=== PATIENT | male | born 1960 | race Caucasian/White ===

== ENCOUNTER → 2024-04-05 | Day surgery (SDC) | payer OTHER ==
[~2024-04-05] MED LIST: ACETAMINOPHEN 1000 MG/100 ML IV ONE; DEXAMETHASONE SOD PHOS INJ 4 MG/ML SDV ONE; EPINEPHRINE 1 MG/ML 30ML VIAL ONE; EPINEPHRINE HCL 1:1000 1ML 1 MG/ML AMP ONE; KETAMINE 50MG/5ML SYR ONE; LIDOCAINE HCL 2% LOCAL INJ 5 ML SDV VIAL INJ ONE; MIDAZOLAM HCL 2 MG/2 ML VIAL ONE; ONDANSETRON HCL INJ 2MG/ML 2ML 2 MG/ML VIAL ONE; PROPOFOL IV EMULSION 10 MG/ML 20 ML VIAL ONE; ROCURONIUM BROMIDE 10 MG/ML 5ML VIAL IV ONE; ROPIVACAINE 0.5% 5 MG/ML 30 ML SDV ONE; SEVOFLURANE INHAL SOLN 250 ML PEN BTL ONE; SUCCINYLCHOLINE CHLORIDE 20 MG/ML 10ML VIAL ONE; SUGAMMADEX SODIUM 200 MG/2 ML VIAL IV ONE; ZESTRIL10 MG PO
[2024-04-05] MEDS: LACTATED RINGER'S 1,000 ML ONE (09:04)
[2024-04-05 11:03] VITALS: TEMP 97.3
[2024-04-05] MEDS: FENTANYL CITRATE/PF 100MCG/2 ML INJ ONE (11:21)
[2024-04-05] MEDS: HYDROCODONE/APAP 7.5MG-325MG 1 EA TAB ONE (11:47)
[2024-04-05 12:05] VITALS: BP 185/84; PULSE 61; RESP 15; O2SAT 95
== END | disposition home or self-care (01) ==
LOC: OR 08:17
PROVIDERS: ATTEND Specialist
DX: S46.012A Strain of muscle(s) and tendon(s) of the rotator cuff of left shoulder, initial encounter (principal); M65.812 Other synovitis and tenosynovitis, left shoulder; I10 Essential (primary) hypertension; Z71.82 Exercise counseling; Z71.3 Dietary counseling and surveillance; W17.89XA Other fall from one level to another, initial encounter; Y92.89 Other specified places as the place of occurrence of the external cause; F17.210 Nicotine dependence, cigarettes, uncomplicated; Z01.810 Encounter for preprocedural cardiovascular examination; Z79.899 Other long term (current) drug therapy; Z68.39 Body mass index [BMI] 39.0-39.9, adult
CPT/HCPCS: 29827; 93005; C1713; J0131; J0171; J0330; J0690; J1100; J2001; J2250; J2405; J2704; J2795; J3010; J7121